=== PATIENT | female | born 1995 | race Caucasian/White ===

== ENCOUNTER → 2019-05-10 | Outpatient (CLI) | payer BC ==
--- NOTE | 2019-05-10 10:33 | KCIC ---
EXAM: Chest, 2 views. HISTORY: Psoriasis. Tuberculosis screening. COMPARISON: None. FINDINGS: 2 views of the chest are obtained. There is no infiltrate, pleural effusion or pneumothorax. The heart is normal in size. There are incidental implanted breast prostheses. IMPRESSION: No acute pulmonary finding or evidence of pleural tuberculosis. Electronically signed by: Loyda Cardoza MD (05/10/2019 10:30 AM) [facility]
== END | disposition home or self-care (01) ==
LOC: KCIC 09:38
PROVIDERS: ATTEND Physician Assistant
DX: Z11.1 Encounter for screening for respiratory tuberculosis (principal); L40.9 Psoriasis, unspecified
CPT/HCPCS: 71046